=== PATIENT | female | born 1965 | race Asian ===

== ENCOUNTER 2023-02-10 20:37 | Emergency (ER) | payer OTHER ==
[2023-02-10 20:48] VITALS: BP 132/77; PULSE 90; RESP 16; TEMP 99.1
== END 2023-02-10 23:28 | disposition home or self-care (01) ==
LOC: FER 20:37
DX: R51.9 Headache, unspecified (principal); M54.2 Cervicalgia; M25.561 Pain in right knee; M25.562 Pain in left knee; M25.511 Pain in right shoulder; M25.512 Pain in left shoulder; Z20.822 Contact with and (suspected) exposure to COVID-19
CPT/HCPCS: 0241U-QW; 70450-TC; 99284-25